=== PATIENT | male | born 1950 | race Caucasian/White ===

== ENCOUNTER 2023-06-25 17:06 | Emergency (ER) | payer BC, MEDICARE ==
[~2023-06-25] VITALS: Ht 175.3 cm; Wt 129.1 kg
[2023-06-25 18:40] LABS: VENOUS BASE EXCESS -0.1 (-2.0-2.0); VENOUS HCO3 26.1 MMOL/L (23.0-27.0); VENOUS O2 SATURATION 50.1 % (60.0-80.0); VENOUS PARTIAL PRESSURE CO2 48.5 mmHg (38.0-50.0); VENOUS PARTIAL PRESSURE O2 27.8 mmHg (30.0-50.0); VENOUS PH 7.349 UNITS (7.330-7.430); VENOUS STANDARD HCO3 23.2 MMOL/L; VENOUS TOTAL CO2 27.6 MMOL/L (24.0-28.0)
[2023-06-25 19:07] LABS: BASO # 0.1 10^3/uL (0.0-0.2); BASO % 1.4 % (0.0-1.0); EOS # 0.3 10^3/uL (0.0-0.5); EOS % 3.4 % (0.0-3.0); LYMPH % 25.4 % (24.0-44.0); MEAN CORPUSCULAR HEMOGLOBIN 28.5 pg (27.0-33.0); MEAN CORPUSCULAR HGB CONC 33.3 g/dl (32.0-36.5); MEAN CORPUSCULAR VOLUME 85.4 fl (80.0-96.0); MONO # 0.5 10^3/uL (0.0-0.8); MONO % 6.8 % (2.0-8.0); NEUTROPHILS # 4.9 10^3/uL (1.5-8.5); NEUTROPHILS % 62.7 % (36.0-66.0); PLATELET COUNT, AUTOMATED 185 10^3/uL (150-450); RED BLOOD COUNT 4.92 10^6/uL (4.30-6.10); WHITE BLOOD COUNT 7.8 10^3/uL (4.0-10.0)
[2023-06-25 19:14] LABS: CPK CREATINE PHOSPHOKINASE 111 U/L (46-171)
[2023-06-25 19:15] LABS: ALBUMIN 3.8 G/DL (3.2-5.2); ALKALINE PHOSPHATASE 69 U/L (46-116); ALT/SGPT 38 U/L (7.0-40); AST/SGOT 24 U/L (<34); BILIRUBIN,DIRECT 0.1 MG/DL (<0.4); BILIRUBIN,TOTAL 0.3 MG/DL (0.3-1.2); BLOOD UREA NITROGEN 15 MG/DL (9-23); CALCIUM LEVEL 9.4 MG/DL (8.3-10.6); CARBON DIOXIDE LEVEL 30 MMOL/L (20-31); CHLORIDE LEVEL 101 MMOL/L (98-107); CREATININE FOR GFR 1.05 MG/DL (0.70-1.30); GLOMERULAR FILTRATION RATE > 60.0 (>42); GLUCOSE, FASTING 135 MG/DL (74-106); POTASSIUM SERUM 4.2 MMOL/L (3.5-5.1); SODIUM LEVEL 138 MMOL/L (136-145); TOTAL PROTEIN 7.2 G/DL (5.7-8.2)
[2023-06-25 19:17] LABS: THYROID STIMULATING HORMONE 1.579 uIU/ML (0.55-4.78); THYROXINE (T4) 10.7 UG/DL (4.5-10.9)
[2023-06-25 20:15] LABS: CK-MB VALUE MASS 1.3 NG/ML (<3.6)
[2023-06-25 20:17] LABS: CPK CREATINE PHOSPHOKINASE 93 U/L (46-171); MB/CK RELATIVE INDEX 1.39 (< OR =4)
[2023-06-25] MEDS ORDERED: ISOVUE-370 76% 100ML VIAL As Ordered ONE (20:30)
[2023-06-25] MEDS ORDERED: THERTAB52 PO (22:21)
[2023-06-25 22:32] VITALS: BP 138/78; TEMP 98.6; O2SAT 93
[2023-06-25] MEDS ORDERED: VITA-243 PO (22:33)
[2023-06-25] MEDS ORDERED: LOSA50TA28 PO (22:33)
[2023-06-25] MEDS ORDERED: GABA800T4 PO (22:33)
[2023-06-25] MEDS ORDERED: METF-877 PO (22:33)
[2023-06-25] MEDS ORDERED: OMEP-173 PO (22:33)
[2023-06-25] MEDS ORDERED: FLOM0.4C39 PO (22:33)
[2023-06-25] MEDS ORDERED: AMLO10TA PO (22:33)
[2023-06-25] MEDS ORDERED: FINA5TAB2 PO (22:33)
[2023-06-25] MEDS ORDERED: GLIP5TAB17 PO (22:33)
[2023-06-25] MEDS ORDERED: FLUO20CA22 PO (22:33)
[2023-06-25] MEDS ORDERED: VESI5TAB2 PO (22:33)
[2023-06-25] MEDS ORDERED: METO1TAB33 PO (22:33)
[2023-06-25] MEDS ORDERED: ASPI81TA26 PO (22:33)
[2023-06-25] MEDS ORDERED: CRES40TA PO (22:33)
== END 2023-06-25 22:57 | disposition home or self-care (01) ==
LOC: M ED 17:06
DX: R06.00 Dyspnea, unspecified (principal); R22.42 Localized swelling, mass and lump, left lower limb; E11.9 Type 2 diabetes mellitus without complications; I10 Essential (primary) hypertension; Z87.891 Personal history of nicotine dependence; Z88.0 Allergy status to penicillin; Z91.013 Allergy to seafood; Z79.82 Long term (current) use of aspirin; Z79.891 Long term (current) use of opiate analgesic; Z79.4 Long term (current) use of insulin; Z79.83 Long term (current) use of bisphosphonates; Z79.899 Other long term (current) drug therapy
CPT/HCPCS: 36415; 71045; 71275; 80048; 80076; 82550; 82553; 82803; 83605; 83880; 84436; 84443; 84484; 85025; 87040; 87486; 87581; 87633; 87798; 93005; 93041; 93970; 94760; 99285; Q9967

== ENCOUNTER → 2024-11-13 | Outpatient (REF) | payer MEDICARE ==
[~2024-11-13] MED LIST: AMLO-751 PO; ASPI81TA26 PO; CRES40TA PO; FINA5TAB2 PO; FLUO-365 PO; GABA-1635 PO; GLIP5TAB17 PO; LOSA50TA28 PO; METF-877 PO; METO1TAB33 PO; OMEP-173 PO; TAMS-18 PO; THERTAB52 PO; VESI5TAB2 PO; VITA-243 PO
[2024-11-13 18:08] LABS: APPEARANCE, URINE CLOUDY (CLEAR); BACTERIA, URINE AUTO NEGATIVE (NEGATIVE); BILIRUBIN, URINE AUTO NEGATIVE (NEGATIVE); BLOOD, URINE BLOOD 3+ (NEGATIVE); GLUCOSE, URINE (UA) AUTO NEGATIVE (NEGATIVE); KETONE, URINE AUTO NEGATIVE (NEGATIVE); LEUKOCYTE ESTERASE, URINE AUTO 3+ (NEGATIVE); MUCUS, URINE SMALL (NEGATIVE); NITRITE, URINE AUTO NEGATIVE (NEGATIVE); PROTEIN, URINE AUTO 3+ mg/dL (NEGATIVE); RBC, URINE AUTO TNTC /HPF (0-3); SPECIFIC GRAVITY URINE AUTO 1.016 (1.002-1.035); SQUAMOUS EPITHELIAL CELL UR AU 0 /HPF (0-6); UROBILINOGEN, URINE AUTO 0.2 mg/dL (0.0-2.0); WBC, URINE AUTO TNTC /HPF (0-3)
== END ==
LOC: M LAB REF 17:20
PROVIDERS: ATTEND Physician Assistant Medical
DX: N39.0 Urinary tract infection, site not specified (principal)